=== PATIENT | male | born 2000 | race Caucasian/White ===

== ENCOUNTER 2019-01-26 11:22 | Emergency (ER) | payer BC ==
[2019-01-26 11:55] VITALS: BP 122/73
[2019-01-26 12:40] LABS: Influenza A Molecular NEGATIVE (Negative); Influenza B Molecular NEGATIVE (Negative)
--- NOTE | 2019-01-26 13:33 | UC ---
Respiratory Complaint HPI - HPI Summary HPI Summary: fever x 1 day high fever of 102 since yesterday , severe fatigue , body aches, lower back pain + chills, headache, cough , no sore throat, + nausea and vomited x 2 today no abdominal pain , no diarrhea or constipation, no urinary sx denies neck pain and photophobia - History of Current Complaint Chief Complaint: UCGeneralIllness Stated Complaint: FEVER,VOMITING,COUGH,CONGESTION Time Seen by Provider: 01/26/19 12:04 Hx Obtained From: Patient Onset/Duration: Gradual Onset, Lasting Days - 1, Still Present Timing: Constant Severity Initially: Moderate Severity Currently: Severe Pain Intensity: 6 Pain Scale Used: 0-10 Numeric Character: Cough: Nonproductive Aggravating Factors: Allergens, Deep Breaths Alleviating Factors: Nothing Associated Signs And Symptoms: Positive: Fever, Chills. Negative: Dyspnea, Pleuritic Chest Pain, Wheezing, Hemoptysis, Dizziness, Calf Pain, Calf Swelling , Edema, URI, Nasal Congestion, Hoarseness, Sinus Discomfort - Allergies/Home Medications Allergies/Adverse Reactions: Allergies Allergy/AdvReac Type Severity Reaction Status Date / Time amoxicillin Allergy Hives Verified 01/26/19 11:51 cefprozil [From Cefzil] Allergy Hives Verified 01/26/19 11:51 PMH/Surg Hx/FS Hx/Imm Hx Previously Healthy: Yes - Surgical History Surgical History: Yes Surgery Procedure, Year, and Place: EAR TUBES. ADENOIDS - Family History Known Family History: Negative: Diabetes - Social History Alcohol Use: Weekly Substance Use Type: None Smoking Status (MU): Never Smoked Tobacco Review of Systems All Other Systems Reviewed And Are Negative: Yes Constitutional: Positive: Fever, Chills, Fatigue Skin: Positive: Negative Eyes: Positive: Negative ENT: Positive: Negative Respiratory: Positive: Cough Cardiovascular: Negative: Palpitations, Chest Pain Gastrointestinal: Positive: Vomiting, Nausea. Negative: Abdominal Pain Genitourinary: Positive: Negative. Negative: Dysuria Neurovascular: Positive: Negative Musculoskeletal: Positive: Myalgia. Negative: Calf Tenderness Neurological: Positive: Headache Is Patient Immunocompromised?: No Physical Exam Triage Information Reviewed: Yes Appearance: Well-Nourished, Pain Distress Vital Signs: Initial Vital Signs Temp 99.4 F 01/26/19 11:51 Pulse 88 01/26/19 11:51 Resp 16 01/26/19 11:51 BP 122/73 01/26/19 11:51 Pulse Ox 97 01/26/19 11:51 Vital Signs Reviewed: Yes Eyes: Positive: Conjunctiva Clear ENT: Positive: Normal ENT inspection, Hearing grossly normal, Pharynx normal, Nasal congestion, TMs normal. Negative: Pharyngeal erythema, TM bulging, TM dull, TM red, Tonsillar swelling, Tonsillar exudate Neck: Positive: Supple, Nontender, No Lymphadenopathy Respiratory: Positive: Chest non-tender, Lungs clear, Normal breath sounds Cardiovascular: Positive: RRR Abdomen Description: Positive: Nontender, Soft. Negative: CVA Tenderness (R), CVA Tenderness (L), Distended, Guarding Bowel Sounds: Positive: Present Skin Exam: Normal Respiratory Course/Dx - Course Course Of Treatment: possible pyelonephritis - Differential Dx/Diagnosis Provider Diagnosis: Fever Discharge - Sign-Out/Discharge Documenting (check all that apply): Patient Departure All imaging exams completed and their final reports reviewed: No Studies - Discharge Plan Condition: Stable Disposition: HOME Prescriptions: Ondansetron ODT TAB* [Zofran 4 MG Odt TAB*] 8 mg PO Q8H PRN #6 tab.odt PRN Reason: Nausea/Vomiting Sulfamethox/Trimethoprim DS* [Bactrim DS 800/160 TAB*] 1 tab PO BID PRN #20 tab PRN Reason: Nausea/Vomiting Patient Education Materials: Kidney Infection (ED) Forms: *Work Release Referrals: No Primary Care Phys,NOPCP [Primary Care Provider] - 3 Days Additional Instructions: ? prostitis / kidney infection will start antibiotics treatment with Bactrim DS, take Zofran as needed for nausea / vomiting will check blood work CBC/ CMP please call the office in 2 days for the results cont. with rest, increase fluid, take Tylenol as needed for pain / fever follow up with your pcp in 3 days , go to ED if getting worse - Billing Disposition and Condition Condition: STABLE Disposition: Home
[2019-01-26 19:01] LABS: ABS Lymphocytes 0.6 10^3/ul (1.0-4.8); ABS Monocytes 0.7 10^3/ul (0-0.8); Eosinophil % 0.2 %; Hematocrit 48 % (42-52); Hemoglobin 16.7 g/dL (14.0-18.0); Lymphocyte % 6.9 %; Mean Corpuscular HGB Conc 35 g/dL (31-36); Mean Corpuscular Hemoglobin 32 pg (27-31); Mean Corpuscular Volume 93 fL (80-94); Mean Platelet Volume 7.7 fL (7.4-10.4); Nucleated Red Blood Cells % 0.3; Platelet Count 136 10^3/uL (150-450); Red Blood Count 5.17 10^6 /uL (4.18-5.48); Red Cell Distribution Width 13 % (10.5-15); White Blood Count 9.4 10^3/uL (3.5-10.8)
[2019-01-26 19:11] LABS: Albumin 4.2 g/dL (3.2-5.2); Calcium 9.2 mg/dL (8.6-10.3); Potassium 3.8 mmol/L (3.5-5.0)
[2019-01-26 19:17] LABS: Albumin/Globulin Ratio 1.5 (1-3); BUN/Creatinine Ratio 5.2 (8-20); EGFR African American 97.1 (>60); EGFR Non-African American 80.3 (>60); Globulin 2.8 g/dL (2-4)
--- NOTE | 2019-01-27 07:28 | UC ---
- Progress Note Progress Note: Lab results from 01/26/19come back; Platelets low at 136 (Normal 150-450) Alkaline Phos high 125 Nursing to call and inform patient of results. I recommend the patient get these labs rechecked at his PMD. Course/Dx - Diagnoses Provider Diagnoses: Fever Discharge - Sign-Out/Discharge Documenting (check all that apply): Patient Departure All imaging exams completed and their final reports reviewed: No Studies - Discharge Plan Condition: Stable Disposition: HOME Prescriptions: Ondansetron ODT TAB* [Zofran 4 MG Odt TAB*] 8 mg PO Q8H PRN #6 tab.odt PRN Reason: Nausea/Vomiting Sulfamethox/Trimethoprim DS* [Bactrim DS 800/160 TAB*] 1 tab PO BID PRN #20 tab PRN Reason: Nausea/Vomiting Patient Education Materials: Kidney Infection (ED) Forms: *Work Release Referrals: No Primary Care Phys,NOPCP [Primary Care Provider] - 3 Days Additional Instructions: ? prostitis / kidney infection will start antibiotics treatment with Bactrim DS, take Zofran as needed for nausea / vomiting will check blood work CBC/ CMP please call the office in 2 days for the results cont. with rest, increase fluid, take Tylenol as needed for pain / fever follow up with your pcp in 3 days , go to ED if getting worse - Billing Disposition and Condition Condition: STABLE Disposition: Home
== END 2019-01-26 13:02 | disposition home or self-care (01) ==
LOC: UCCORT 11:22
DX: R50.9 Fever, unspecified (principal); R53.83 Other fatigue; M54.5 Low back pain; R11.2 Nausea with vomiting, unspecified; Z88.0 Allergy status to penicillin; Z88.8 Allergy status to other drugs, medicaments and biological substances
CPT/HCPCS: 36415; 80053; 81003; 85025; 99202; G0463